=== PATIENT | female | born 1970 | race African-American/Black ===

== ENCOUNTER 2016-12-29 12:12 | Inpatient (IN) | payer MEDICARE ==
[~2016-12-29] VITALS: Ht 157.5 cm; Wt 122.7 kg
[~2016-12-29 12:12] MED LIST: CRESTOR20 MG PO; DIFLUCAN150 MG PO; DULCOLAX10 MG/SUPP RC; KLOR-CON 1010 MEQ PO; LASIX20 MG PO; LOVENOX40 MG/0.4 SQ; MORPHINE SULFAT15 M3 PO; OXYCODONE HCL10 MG PO; OXYCODONE HCL5 MG PO; PROTONIX40 MG PO; SOMA350 MG PO; TAZICEF IV; ZANAFLEX4 MG PO
[2016-12-29 13:13] LABS: HEMATOCRIT 38.9 % (36.0-48.0); HEMOGLOBIN 12.5 g/dL (12-16); MCH 27.1 pg (26.0-34.0); MCHC 32.1 g/dL (31.0-37.0); MCV 84.2 fL (80.0-100.0); MEAN PLATELET VOLUME 10.1 fL (7.4-10.4); PLATELET COUNT 330 10x3/uL (130-400); RBC 4.62 10x6/uL (4.00-5.40); RDW 15.2 % (11.5-14.5); WBC 21.5 10x3/uL (4.8-10.8)
[2016-12-29 13:32] LABS: ALBUMIN 2.8 g/dL (3.4-5.0); ANION GAP 8.3 mmol/L (8-16); BILIRUBIN - TOTAL 0.88 mg/dL (0.2-1.3); CALCIUM 8.9 mg/dL (8.5-10.1); CARBON DIOXIDE 33.4 mmol/L (21.0-32.0); CREATININE - SERUM 1.1 mg/dL (0.6-1.3); POTASSIUM - SERUM 3.7 mmol/L (3.5-5.1)
[2016-12-29 13:56] LABS: LYMPHOCYTES 19 % (15-50); MONOCYTES 19 % (2-11); NEUTROPHILS 59 % (40-80); PLATELET ESTIMATE NORMAL
[2016-12-29 14:44] LABS: AMORPHOUS SEDIMENT <1+ /lpf (NONE SEEN); APPEARANCE HAZY (CLEAR); BACTERIA MANY /hpf (NONE SEEN); BILIRUBIN NEGATIVE (NEGATIVE); COLOR YELLOW (YELLOW); GLUCOSE NEGATIVE (NEGATIVE); HYALINE CAST RARE /lpf (NONE SEEN); KETONE NEGATIVE (NEGATIVE); LEUKOCYTE ESTERASE 2+ (NEGATIVE); MUCUS <1+ /lpf (NONE SEEN); NITRITE NEGATIVE (NEGATIVE); PROTEIN NEGATIVE (NEGATIVE); RED CELLS - URINE 0-5 /hpf (0-5)
--- NOTE | 2016-12-29 20:57 | NUR ---
PATIENT RECEIVED TO ROOM VIA STRETCHER. FAMILY PRESENT. STABLE. ASSISTED TO BED. ADMISSION ORDERED REVIEWED AND INITIATED. NO NEEDS VOICED AT THIS TIME ICA WATER GIVEN. ORIENTED TO ROOM AND USE OF CALL LIGHT. BED LOW.
[2016-12-29] MEDS ORDERED: OXYCODONE HCL10 MG PO (21:03)
[2016-12-29 21:45] VITALS: BP 111/64; Ht 157.5 cm; Wt 122.7 kg
[2016-12-30 04:00] VITALS: BP 97/44
--- NOTE | 2016-12-30 05:48 | NUR ---
PATIENT TEMP 102.9. DR. DANIELLE NOTIFIED AND ORDER RECEIVED FOR TYLENOL. TYLENOL GIVEN.
--- NOTE | 2016-12-30 07:30 | NUR ---
REPORT RECEIVED FROM GEOMAGNETICIAN NURSE. CALL LIGHT IN REACH.
[2016-12-30 08:02] VITALS: BP 98/47
--- NOTE | 2016-12-30 09:00 | NUR ---
ASSESSMENT PER KIRT HILTON.
--- NOTE | 2016-12-30 10:52 | NUR ---
OXY IR PO WITH AM MEDS ADMINISTERED. VISITOR IN ROOM. CALL LIGHT IN REACH.
[2016-12-30 12:28] VITALS: BP 99/59
--- NOTE | 2016-12-30 12:30 | NUR ---
DENIES NEEDS AT THIS TIME. CALL LIGHT IN REACH.
--- NOTE | 2016-12-30 14:40 | NUR ---
FAMILY IN ROOM AT THIS TIME. NO NEEDS VOICED AT THIS TIME. CALL LIGHT IN REACH.
--- NOTE | 2016-12-30 15:40 | NUR ---
NO NEEDS VOICED AT THIS TIME. CALL LIGHT IN REACH.
[2016-12-30 15:59] VITALS: BP 122/63
--- NOTE | 2016-12-30 17:55 | NUR ---
PAIN PILLS PO PER C/O PAIN OF 10.
--- NOTE | 2016-12-30 18:06 | NUR ---
NO CHANGES IN INITIAL ASSESSMENT. CALL LIGHT IN REACH. WILL CONTINUE WITH PLAN OF CARE.
[2016-12-30 19:00] VITALS: BP 105/58
--- NOTE | 2016-12-30 22:08 | NUR ---
PATIENT RESTING IN BED. ALERT AND ORIENTED. C/O PAIN TO BACK. PRN DILAUDID GIVEN ORDERED. NO OTHER NEEDS VOICED AT THIS TIME. BED LOW CALL LIGHT IN REACH
[2016-12-31] VITALS: BP 110/64
[2016-12-31 04:00] VITALS: BP 116/56
--- NOTE | 2016-12-31 07:00 | NUR ---
PT WAS RECEIVED AT THE BEGINNING OF THIS SHIFT IN BED. SHE WAS AWAKE AND ORIENTED X 3. AT BEDSIDE. NO COMPLAINTS OR CONCERNS AT THIS TIME. LEFT HAND IV AT KVO RATE. WILL BE MONITORING HER AND ASSISTING PRN WITH ADL'S.
[2016-12-31 08:17] VITALS: BP 118/72
[2016-12-31 12:03] VITALS: BP 83/43
--- NOTE | 2016-12-31 14:08 | NUR ---
PT ASKED FOR PAIN MEDICATION AROUND 934 AND RECEIVED OXYCODONE 10MG AT THAT TIME. CASTILLO CATHETER REMAINS PATENT AND DRAINING URINE TO GRAVITY. TODAY IS PT'S BIRTHDAY.
--- NOTE | 2016-12-31 14:59 | NUR ---
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 PATIENT STATED SHE LIVES WITH HER FAMILY AND THEY WILL DRIVE HER HOME AT DISCHARGE. PATIENT IS A PARAPLEGIC AND HAS A HOSPITAL BED AND SHOWER CHAIR AT HOME. PATIENT HAS A RAMP TO ENTER THERE HOME AND NO STAIRS INSIDE. PATIENTS PCP IS DR. DANIELLE AND PHARMACY IS [facility]. PATIENT HAS NOT HAD HOME HEALTH AND DOES NOT THINK SHE WILL NEED IT. CM WILL CONTINUE TO FOLLOW PATIENT WITH D/C NEEDS AND PLANS. PCP DR. SHASHI COSTA [facility] DIYA (SPOUSE) [phone] Information Technology Manager: Glenna Morrison Is the patient Alert and Oriented? Yes 0 * How many steps to enter\exit or inside your home? RAMP 0 * PCP DR. ESCALONA 0 * Pharmacy [facility] 0 * Preadmission Environment Home with Family 0 * ADLs Total Dependent 0 * Equipment Hospital Bed Shower Chair 0 * List name and contact numbers for known caregivers / representatives who currently or will assist patient after discharge: DIYA (SPOUSE) [phone] * Community resources currently utilized None 0 * Additional services required to return to the preadmission environment? Yes 0 * Can the patient safely return to the preadmission environment? Yes 0 * Has this patient been hospitalized within the prior 30 days at any hospital? No 0 Grand Total: 0
[2016-12-31 16:06] VITALS: BP 102/52
[2016-12-31 20:00] VITALS: BP 112/44
--- NOTE | 2016-12-31 21:00 | NUR ---
PT TURNS SELF. SKIN WNL. PT C/O OF ABDOMINAL CRAMPING. STATES SHE HAS NOT HAD BOWEL MOVEMENT SINCE WEDNESDAY. BOWEL PROGRAM USUALLY DONE ON ,,. ADMINISTERED DULCOLAX SUPPOSITORY AND LAID EXTRA PADDING ON BED. NO OTHER NEEDS AT THIS TIME. WILL REASSESS AND CONTINUE TO MONITOR.
[2017-01-01] VITALS (7 sets, daily range): BP systolic 102–136; BP diastolic 44–91
--- NOTE | 2017-01-01 04:55 | NUR ---
PT HAD LARGE FORMED STOOL. C/O BACK PAIN 05/02. GAVE DILAUDID 1 MG IM TO LEFT VENTROGLUTEAL. NO OTHER NEEDS. WILL CONTINUE TO MONITOR.
--- NOTE | 2017-01-01 08:10 | NUR ---
ASSESSMENT PER FLOW SHEET.PT WITHOUT DISTRESS.CALL LIGHT IN REACH
[2017-01-01 09:49] LABS: BASOPHILS 0.1 % (0-2); EOSINOPHILS 3.4 % (0-7); HEMATOCRIT 37.2 % (36.0-48.0); HEMOGLOBIN 11.6 g/dL (12-16); MCH 26.4 pg (26.0-34.0); MCHC 31.2 g/dL (31.0-37.0); MCV 84.7 fL (80.0-100.0); MEAN PLATELET VOLUME 9.7 fL (7.4-10.4); MONOCYTES 8.1 % (2-11); NEUTROPHILS 55.4 % (40-80); PLATELET COUNT 335 10x3/uL (130-400); RBC 4.39 10x6/uL (4.00-5.40); RDW 15.2 % (11.5-14.5)
[2017-01-01 10:08] LABS: ALBUMIN 2.5 g/dL (3.4-5.0); ANION GAP 4.4 mmol/L (8-16); BILIRUBIN - TOTAL 0.25 mg/dL (0.2-1.3); CALCIUM 8.9 mg/dL (8.5-10.1); CARBON DIOXIDE 34.9 mmol/L (21.0-32.0); CREATININE - SERUM 1.1 mg/dL (0.6-1.3); POTASSIUM - SERUM 3.3 mmol/L (3.5-5.1); PROTEIN - SERUM 7.6 g/dL (6.4-8.2)
--- NOTE | 2017-01-01 18:51 | NUR ---
REMAINS WITHOUT NEEDS,WITHOUT CHANGE.CONT PLAN OF CARE
[2017-01-02 03:55] VITALS: BP 121/86
--- NOTE | 2017-01-02 04:02 | NUR ---
PT IS ASLEEP WITH EASY RESPIRATIONS AND NO DISTRESS NOTED. CASTILLO IS IN PLACE AND DRAINING. THE BED IS LOW, RAILS UP X'S 2 WITH THE CALL LIGHT AT HAND.
[2017-01-02] MEDS ORDERED: MACROBID100 MG PO (06:51)
--- NOTE | 2017-01-02 07:50 | NUR ---
ASSESSMENT PER FLOW SHEET.PT WITHOUT DISTRESS.DENIES NEEDS.CALL LIGHT IN REACH
[2017-01-02 07:57] VITALS: BP 119/61
--- NOTE | 2017-01-02 10:30 | NUR ---
IV DCD WITH CATH INTACT.DISCHARGE INSTRUCTIONS.STATES UNDERSTANDING.
--- NOTE | 2017-01-02 11:00 | NUR ---
LEFT UNIT VIA WHEELCHAIR FOR TRANSPORT HOME
--- NOTE | 2017-01-02 11:03 | NUR ---
HH order received, spoke to court who stated she does not have a preference of agency. Referral called and faxed to [facility]. They will make first visit on Wednesday. ALINA for signed for [facility]. Stefania Rios RN, CCM
== END 2017-01-02 11:00 | disposition home health service (06) | DRG 699 ==
LOC: D.ER 12:12 → D.MS 17:42
PROVIDERS: Emergency Medicine; ADMIT Legal Medicine
DX: T83.518A Infection and inflammatory reaction due to other urinary catheter, initial encounter (principal); N12 Tubulo-interstitial nephritis, not specified as acute or chronic; G82.20 Paraplegia, unspecified; Z68.42 Body mass index [BMI] 45.0-49.9, adult; E66.9 Obesity, unspecified; J44.9 Chronic obstructive pulmonary disease, unspecified; E78.5 Hyperlipidemia, unspecified

== ENCOUNTER 2019-10-04 12:50 | Inpatient (IN) | payer MEDICARE ==
[~2019-10-04] VITALS: Ht 157.5 cm; Wt 122.5 kg
[~2019-10-04 12:50] MED LIST changes: +MACROBID100 MG PO
[2019-10-04 13:11] VITALS: BP 150/85
[2019-10-04 14:39] LABS: HEMOGLOBIN 12.3 g/dL (12-16); MCHC 32.4 g/dL (31.0-37.0); MCV 83.5 fL (80.0-100.0); MEAN PLATELET VOLUME 10.1 fL (7.4-10.4); PLATELET COUNT 400 10x3/uL (130-400); RBC 4.55 10x6/uL (4.00-5.40); RDW 15.1 % (11.5-14.5); WBC 21.6 10x3/uL (4.8-10.8)
[2019-10-04 14:51] LABS: COLOR YELLOW (YELLOW)
[2019-10-04 14:52] LABS: AMORPHOUS SEDIMENT <1+ /lpf (NONE SEEN); APPEARANCE CLOUDY (CLEAR); BACTERIA MODERATE /hpf (NEGATIVE); BILIRUBIN NEGATIVE (NEGATIVE); EPITHELIAL CELLS 0-5 /hpf (0-5); GLUCOSE NEGATIVE (NEGATIVE); KETONE NEGATIVE (NEGATIVE); MUCUS <1+ /lpf (NONE SEEN); NITRITE POSITIVE (NEGATIVE); PROTEIN TRACE mg/dL (NEGATIVE); UROBILINOGEN NORMAL (NORMAL)
[2019-10-04 14:52] LABS: ANION GAP 9.2 mmol/L (8-16); CALCIUM 9.1 mg/dL (8.5-10.1); CARBON DIOXIDE 31.9 mmol/L (21.0-32.0); CREATININE - SERUM 1.3 mg/dL (0.6-1.3); POTASSIUM - SERUM 3.1 mmol/L (3.5-5.1)
[2019-10-04 15:06] LABS: ALBUMIN 2.9 g/dL (3.4-5.0); BILIRUBIN - TOTAL 0.49 mg/dL (0.2-1.3); PROTEIN - SERUM 8.4 g/dL (6.4-8.2)
[2019-10-04 15:31] LABS: LYMPHOCYTES 20 % (15-50); MONOCYTES 6 % (2-11); NEUTROPHILS 74 % (40-80); PLATELET ESTIMATE NORMAL
--- NOTE | 2019-10-04 19:14 | NUR ---
PATIENT ONLY NEEDS 2LTS N/S PER DALTON COMACHO DRAFTER AUTOMOTIVE DESIGN
[2019-10-04 20:00] VITALS: BP 136/47
[2019-10-04 21:16] VITALS: BP 136/76
--- NOTE | 2019-10-04 21:20 | NUR ---
PT GIVEN BLANKET, DENIES ANY FURTHER NEEDS AT THIS TIME. CALL LIGHT WITHIN REACH. WILL CONTINUE TO MONITOR.
[2019-10-04 22:30] VITALS: BP 154/65
--- NOTE | 2019-10-04 22:45 | NUR ---
850 ML OF DARK YELLOW URINE EMPTIED FROM PT'S LEG BAG.
[2019-10-05 09:52] VITALS: BP 141/76; BMI 49.5
--- NOTE | 2019-10-05 13:25 | NUR ---
I have reviewed this patient and I concur with the Shift Assessment completed by the Licensed Practical Nurse today this shift.
--- NOTE | 2019-10-05 13:40 | MORECARE ---
CASE MANAGEMENT DISCHARGE SUMMARY PATIENT: ESTEFANIA GONZALEZ UNIT: [id number] ADM DATE: 10/05/19 AGE: 49 : 74 SEX: F ROOM/BED: D.2210 AUTHOR: SURAJ,DOC PHYSICIAN: REFERRING PHYSICIAN: KUSUM DANIELLE MD DATE OF SERVICE: 10/05/19 Discharge Plan Patient Name: ESTEFANIA GONZALEZ Facility: [facility]:[place] : 1970 Planned Disposition: Anticipated Discharge Date: Discharge Date: Expected LOS: Initial Reviewer: [email or web address] Initial Review Date: 10/05/2019 Generated: 10/05/19 2:39 pm DCP- Discharge Planning Updated by [email or web address]: Mayra Castellanos on 10/05/19 10:[address] CM met with patient to discuss initial discharge planning. Patient is in agreement to proceed with the assessment with spouse present. Patient reports that she lives at home partially dependent with her spouse, 2 sons. Patient is alert/oriented. Stairs/steps: Ramp. PCP: Dr. Danielle. Pharmacy: [facility]. Patient states she has been able to obtain all of her prescribed medications. HHS: No. DME: W/C, C-pap. DME provider [facility]. Patient gives permission to speak with family members/care givers. Emergency contact: Brayan Gonzalez (spouse) [phone]. 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 Community resources: Aide 7/d/w for personal care through [facility], total of 63 hours every 2 weeks. CM discussed the availability of HH, Rehab, DME services. Patient denies the need for additional services at this time and feels safe returning to previous environment. Patient denies being hospitalized within the past 30 days. Transportation at time of discharge: Brayan Gonzalez (spouse) [phone]. CM will assist PRN with dc needs/plans. DCPIA - Discharge Planning Initial Assessment Updated by [email or web address]: Mayra Castellanos on 10/05/19 1:37 pm * Is the patient Alert and Oriented? Yes * How many steps to enter\exit or inside your home? Ramp * PCP Dr. Danielle * Pharmacy [facility] * Preadmission Environment Home with Family * ADLs Partial Dependent * Partial ADLs (Assistance needed) Bathing Dressing * Equipment CPAP Wheelchair * Other Equipment DME: [facility] * List name and contact numbers for known caregivers / representatives who currently or will assist patient after discharge: Brayan Gonzalez [phone] * Verbal permission to speak to the caregivers and representatives has been obtained from the patient. Yes * Community resources currently utilized Private Duty Care * Please name any agencies selected above. Aide through [facility] * Additional services required to return to the preadmission environment? No * Can the patient safely return to the preadmission environment? Yes * Has this patient been hospitalized within the prior 30 days at any hospital? No Patient Name: ESTEFANIA GONZALEZ Page [id number] at 1340 All edits/amendments must be made on the electronic document DICTATION DATE: 10/05/191338 CUPOLA HOIST OPERATOR: TACO 10/05/19 133 RPT#: [id number] [place] DATE: STATUS: ADM IN [facility] [address] [place] [address] END OF REPORT
--- NOTE | 2019-10-05 15:20 | NUR ---
REC'D TO ROOM 2210 AT THIS TIME AWAKE AND ALERT. RESP EVEN AND UNLABORED WITH NO DISTRESS NOTED. CAN EXPRESS NEEDS AND WANTS. NO C/O NOTEDOR VOICED. ASSESMENT COMPLETED. R HAND IV WHICH IS SALINE LOCK. WILL CONTINUE TO OBSERVE FOR NEEDS. C/L IN REACH AT BEDSIDE.
[2019-10-05 16:35] VITALS: BP 109/64
[2019-10-05 20:00] VITALS: BP 116/59
[2019-10-06] VITALS: BP 113/64
[2019-10-06 04:00] VITALS: BP 115/66
[2019-10-06 05:07] LABS: BASOPHILS 0.2 % (0-2); EOSINOPHILS 0.6 % (0-7); HEMATOCRIT 35.5 % (36.0-48.0); HEMOGLOBIN 11.1 g/dL (12-16); IMMATURE GRANULOCYTES 0.5 % (0-5); LYMPHOCYTES 25.3 % (15-50); MCH 26.7 pg (26.0-34.0); MCHC 31.3 g/dL (31.0-37.0); MEAN PLATELET VOLUME 10.2 fL (7.4-10.4); MONOCYTES 15.1 % (2-11); NEUTROPHILS 58.3 % (40-80); PLATELET COUNT 362 10x3/uL (130-400); RBC 4.15 10x6/uL (4.00-5.40); RDW 15.4 % (11.5-14.5)
[2019-10-06 05:15] LABS: CALCIUM 8.6 mg/dL (8.5-10.1); CARBON DIOXIDE 36.2 mmol/L (21.0-32.0); CREATININE - SERUM 1.1 mg/dL (0.6-1.3); POTASSIUM - SERUM 3.2 mmol/L (3.5-5.1)
[2019-10-06 06:09] LABS: MCV 85.5 fL (80.0-100.0); WBC 13.2 10x3/uL (4.8-10.8)
[2019-10-06 09:43] VITALS: BP 108/69
[2019-10-06 12:56] VITALS: BP 118/76
[2019-10-06 14:34] VITALS: Ht 157.5 cm; Wt 122.5 kg
[2019-10-06 17:43] VITALS: BP 118/69
[2019-10-06 20:00] VITALS: BP 110/57
--- NOTE | 2019-10-06 22:00 | NUR ---
GAVE DULCOLAX SUPPOSITORY. PT REFUSES OVERLAY AIRBED. NO OTHER NEEDS. ASSESSMENT COMPLETE PER FLOW-SHEET. WILL CONTINUE TO MONITOR.
[2019-10-07] VITALS: BP 106/44
[2019-10-07 04:00] VITALS: BP 122/55
[2019-10-07 06:29] LABS: BASOPHILS 0.2 % (0-2); EOSINOPHILS 2.3 % (0-7); HEMOGLOBIN 11.3 g/dL (12-16); IMMATURE GRANULOCYTES 0.5 % (0-5); LYMPHOCYTES 32.3 % (15-50); MCH 26.9 pg (26.0-34.0); MCHC 31.4 g/dL (31.0-37.0); MCV 85.7 fL (80.0-100.0); MEAN PLATELET VOLUME 9.9 fL (7.4-10.4); MONOCYTES 11.6 % (2-11); NEUTROPHILS 53.1 % (40-80); PLATELET COUNT 379 10x3/uL (130-400); RDW 15.2 % (11.5-14.5); WBC 10.4 10x3/uL (4.8-10.8)
[2019-10-07 06:39] LABS: ANION GAP 7.5 mmol/L (8-16); CALCIUM 8.5 mg/dL (8.5-10.1); CARBON DIOXIDE 34.9 mmol/L (21.0-32.0); POTASSIUM - SERUM 3.4 mmol/L (3.5-5.1)
[2019-10-07 08:47] VITALS: BP 104/63
[2019-10-07 12:10] VITALS: BP 110/51
[2019-10-07 16:44] VITALS: BP 111/61
[2019-10-07 20:00] VITALS: BP 111/59
--- NOTE | 2019-10-07 20:00 | NUR ---
WOKE PT FOR ASSESSMENT. PT REFUSED ENEMA ADMINISTRATION AT THIS TIME. STATES SHE HAS BEEN "HAVING A LOT OF RUMBLING" AND DOES NOT WANT THE ENEMA YET.
[2019-10-08] VITALS: BP 127/60
[2019-10-08 04:00] VITALS: BP 135/83
[2019-10-08 05:28] LABS: BASOPHILS 0.2 % (0-2); EOSINOPHILS 2.9 % (0-7); HEMATOCRIT 35.5 % (36.0-48.0); HEMOGLOBIN 11.2 g/dL (12-16); IMMATURE GRANULOCYTES 0.7 % (0-5); MCH 26.9 pg (26.0-34.0); MCHC 31.5 g/dL (31.0-37.0); MCV 85.3 fL (80.0-100.0); MEAN PLATELET VOLUME 10.2 fL (7.4-10.4); MONOCYTES 11.9 % (2-11); NEUTROPHILS 48.3 % (40-80); PLATELET COUNT 418 10x3/uL (130-400); RBC 4.16 10x6/uL (4.00-5.40); RDW 15.3 % (11.5-14.5); WBC 8.8 10x3/uL (4.8-10.8)
[2019-10-08 05:46] LABS: ANION GAP 7.8 mmol/L (8-16); CALCIUM 9.2 mg/dL (8.5-10.1); CARBON DIOXIDE 32.8 mmol/L (21.0-32.0); POTASSIUM - SERUM 3.6 mmol/L (3.5-5.1)
[2019-10-08 08:12] VITALS: BP 113/71
--- NOTE | 2019-10-08 09:38 | NUR ---
HAS HAD SOME BM'S, PO MED GIVEN FOR A BM THIS MORNING. HELPED TURNED TO THE LEFT SIDE. NO NEW ISSUES. CASTILLO DRAINING YELLOW URINE.
[2019-10-08 12:02] VITALS: BP 110/62
[2019-10-08 16:19] VITALS: BP 121/52
[2019-10-08 20:00] VITALS: BP 103/60
[2019-10-09] VITALS: BP 110/54
[2019-10-09 04:00] VITALS: BP 120/59
[2019-10-09 04:17] LABS: BASOPHILS 0.2 % (0-2); EOSINOPHILS 2.8 % (0-7); HEMATOCRIT 35.6 % (36.0-48.0); HEMOGLOBIN 11.3 g/dL (12-16); IMMATURE GRANULOCYTES 0.8 % (0-5); MCH 26.8 pg (26.0-34.0); MCHC 31.7 g/dL (31.0-37.0); MCV 84.4 fL (80.0-100.0); MEAN PLATELET VOLUME 9.4 fL (7.4-10.4); MONOCYTES 7.7 % (2-11); NEUTROPHILS 54.5 % (40-80); PLATELET COUNT 416 10x3/uL (130-400); RBC 4.22 10x6/uL (4.00-5.40); RDW 15.1 % (11.5-14.5); WBC 8.9 10x3/uL (4.8-10.8)
[2019-10-09 04:36] LABS: CALCIUM 8.9 mg/dL (8.5-10.1); CARBON DIOXIDE 32.5 mmol/L (21.0-32.0); POTASSIUM - SERUM 3.5 mmol/L (3.5-5.1)
--- NOTE | 2019-10-09 07:20 | NUR ---
REC'D IN BED WITH EYES CLOSED EASILY TO AROUSED WHEN NAME IS CALLED. RESP EVEN AND UNLABORED WITH NO DISTRESS NOTED. CAN EXPRESS NEEDS AND WANTS. NO C/O NOTED OR VOICED. ASSESSMENT COMPLETED. C/L IN REACH AT BEDSIDE.
[2019-10-09 08:23] VITALS: BP 101/54
--- NOTE | 2019-10-09 09:14 | MORECARE ---
CASE MANAGEMENT DISCHARGE SUMMARY PATIENT: ESTEFANIA GONZALEZ UNIT: [id number] ADM DATE: 10/05/19 AGE: 49 : 74 SEX: F ROOM/BED: D.2210 AUTHOR: SURAJ,DOC PHYSICIAN: REFERRING PHYSICIAN: KUSUM DANIELLE MD DATE OF SERVICE: 10/09/19 Discharge Plan Patient Name: ESTEFANIA GONZALEZ Facility: [facility]:[place] : 1970 Planned Disposition: Anticipated Discharge Date: Discharge Date: Expected LOS: Initial Reviewer: [email or web address] Initial Review Date: 10/05/2019 Generated: 10/09/19 10:13 am DCP- Discharge Planning Updated by [email or web address]: Mayra Castellanos on 10/05/19 10:[address] CM met with patient to discuss initial discharge planning. Patient is in agreement to proceed with the assessment with spouse present. Patient reports that she lives at home partially dependent with her spouse, 2 sons. Patient is alert/oriented. Stairs/steps: Ramp. PCP: Dr. Danielle. Pharmacy: [facility]. Patient states she has been able to obtain all of her prescribed medications. HHS: No. DME: W/C, C-pap. DME provider [facility]. Patient gives permission to speak with family members/care givers. Emergency contact: Brayan Gonzalez (spouse) [phone]. 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 Community resources: Aide 7/d/w for personal care through [facility], total of 63 hours every 2 weeks. CM discussed the availability of HH, Rehab, DME services. Patient denies the need for additional services at this time and feels safe returning to previous environment. Patient denies being hospitalized within the past 30 days. Transportation at time of discharge: Brayan Gonzalez (spouse) [phone]. CM will assist PRN with dc needs/plans. DCPIA - Discharge Planning Initial Assessment Updated by [email or web address]: Mayra Castellanos on 10/05/19 1:37 pm * Is the patient Alert and Oriented? Yes * How many steps to enter\exit or inside your home? Ramp * PCP Dr. Danielle * Pharmacy [facility] * Preadmission Environment Home with Family * ADLs Partial Dependent * Partial ADLs (Assistance needed) Bathing Dressing * Equipment CPAP Wheelchair * Other Equipment DME: [facility] * List name and contact numbers for known caregivers / representatives who currently or will assist patient after discharge: Brayan Gonzalez [phone] * Verbal permission to speak to the caregivers and representatives has been obtained from the patient. Yes * Community resources currently utilized Private Duty Care * Please name any agencies selected above. Aide through [facility] * Additional services required to return to the preadmission environment? No * Can the patient safely return to the preadmission environment? Yes * Has this patient been hospitalized within the prior 30 days at any hospital? No Last DP export: 10/05/19 12:40 p Patient Name: ESTEFANIA GONZALEZ Page [phone] at 0914 All edits/amendments must be made on the electronic document DICTATION DATE: 10/09/19912 SENIOR ECONOMIST: TACO 10/09/19912 RPT#: [id number] DC DATE: STATUS: ADM IN [facility] [address] [place] [address] END OF REPORT
[2019-10-09 12:18] VITALS: BP 119/58
--- NOTE | 2019-10-09 13:07 | NUR ---
WAS MEDICATED WITH OXY IR PER ORDER FOR C/O PAIN. C/L IN REACH AT BEDSIDE.
[2019-10-09 16:43] VITALS: BP 108/56
--- NOTE | 2019-10-09 18:45 | NUR ---
I have reviewed this patient and I concur with the Shift Assessment completed by the Licensed Practical Nurse today this shift.
--- NOTE | 2019-10-09 19:24 | NUR ---
PT IS RESTING IN BED WITH EYES OPEN. RESPIRATIONS ARE EVEN ADN UNLABORED. PT IS AAO X 4. PT DENIES PRESENCE OF N/V/PAIN. PT REPORTS THAT SHE HAS NO FEELING TO BLE AND HAS FULL ROM TO BUE. PT REPOSITIONED TO RIGHT SIDE. PILLOWS USED FOR SUPPORT. PT ENCOURAGED TO TCDB. PT VERBALIZES UNDERSTANDING. BED IS IN THE LOWEST POSITION. CALL LIGHT AND BEDSIDE TABLE ARE WITHIN REACH. SIDE RAILS X 2. PT DENIES FURTHER NEEDS. WILL CONT TO MONITOR.
[2019-10-09 21:39] VITALS: BP 107/65
--- NOTE | 2019-10-09 21:42 | NUR ---
PT REPOSITIONED TO BACK. BED IS IN THE LOWEST POSITION. CALL LIGHT AND BEDSIDE TABLE ARE WITHIN REACH. SIDE RAILS X 2. PT DENIES FURTHER NEEDS. WILL CONT TO MONITOR.
--- NOTE | 2019-10-10 00:30 | NUR ---
PT STATES PAIN IN BACK 06/01, GAVE OXY ORDERED. DENIES OTHER NEEDS. CL IN REACH, WILL CTM
[2019-10-10 01:26] VITALS: BP 127/70
[2019-10-10 05:30] VITALS: BP 120/68
[2019-10-10 05:30] LABS: BASOPHILS 0.2 % (0-2); EOSINOPHILS 2.4 % (0-7); HEMOGLOBIN 11.4 g/dL (12-16); IMMATURE GRANULOCYTES 0.7 % (0-5); LYMPHOCYTES 30.7 % (15-50); MCH 26.5 pg (26.0-34.0); MCHC 31.7 g/dL (31.0-37.0); MCV 83.5 fL (80.0-100.0); MEAN PLATELET VOLUME 9.9 fL (7.4-10.4); MONOCYTES 6.9 % (2-11); NEUTROPHILS 59.1 % (40-80); PLATELET COUNT 483 10x3/uL (130-400); RBC 4.31 10x6/uL (4.00-5.40)
[2019-10-10 05:44] LABS: ANION GAP 10.6 mmol/L (8-16); CARBON DIOXIDE 30.9 mmol/L (21.0-32.0); CREATININE - SERUM 0.9 mg/dL (0.6-1.3); POTASSIUM - SERUM 3.5 mmol/L (3.5-5.1)
[2019-10-10 05:56] LABS: WBC 11.9 10x3/uL (4.8-10.8)
--- NOTE | 2019-10-10 09:00 | NUR ---
BATH AND LINEN CHANGED AT THIS TIME VIA THIS NURSE. C/L IN REACH AT BEDSIDE.
[2019-10-10 09:28] VITALS: BP 108/73
--- NOTE | 2019-10-10 12:13 | NUR ---
MEDICATED WITH OXY PER ORDERS AT THIS TIME FOR C/O PAIN RATING 9/10. C/L IN REACH AT BEDSIDE
[2019-10-10 12:45] VITALS: BP 122/84
--- NOTE | 2019-10-10 14:20 | NUR ---
Nutrition follow-up: Diet: Regular PO intake continues to be fair to good at meals Labs reviewed Wt: 270# +BM RDN following.
--- NOTE | 2019-10-10 14:30 | NUR ---
I have reviewed this patient and I concur with the Shift Assessment completed by the Licensed Practical Nurse today this shift.
--- NOTE | 2019-10-10 17:09 | NUR ---
C/O GENERALIZED PAIN WAS MEDICATED WITH OXY PER ORDERS. C/L IN REACH AT BEDSIDE.
[2019-10-10 17:17] VITALS: BP 148/79
--- NOTE | 2019-10-10 19:30 | NUR ---
PT SITTING UP IN BED WITHOUT DISTRESS, AOX4. IV RIGHT HAND SL. NO REDNESS OR SWELLING AT SITE. CASTILLO DRAINING CLEAR YELLOW URINE. HEEL PROTECTORS IN PLACE BILAT. TURNED TO LEFT SIDE. DENIES OTHER NEEDS. CL IN REACH, WILL CTM
--- NOTE | 2019-10-10 21:30 | NUR ---
HS MEDS GIVEN WITHOUT DIFFICULTY. PROVIDED ICE WATER. TURNED TO RIGHT SIDE. DENIES FURTHER NEEDS. WILL CTM
[2019-10-10 23:09] VITALS: BP 119/49
[2019-10-11 01:45] VITALS: BP 112/67
[2019-10-11 05:20] VITALS: BP 97/67
[2019-10-11 05:25] LABS: BASOPHILS 0.2 % (0-2); EOSINOPHILS 3.2 % (0-7); HEMATOCRIT 36.9 % (36.0-48.0); HEMOGLOBIN 11.7 g/dL (12-16); IMMATURE GRANULOCYTES 0.9 % (0-5); LYMPHOCYTES 32.1 % (15-50); MCH 26.8 pg (26.0-34.0); MCHC 31.7 g/dL (31.0-37.0); MCV 84.4 fL (80.0-100.0); MEAN PLATELET VOLUME 9.5 fL (7.4-10.4); MONOCYTES 7.7 % (2-11); NEUTROPHILS 55.9 % (40-80); PLATELET COUNT 525 10x3/uL (130-400); RBC 4.37 10x6/uL (4.00-5.40); RDW 15.1 % (11.5-14.5); WBC 9.7 10x3/uL (4.8-10.8)
[2019-10-11 05:34] LABS: ANION GAP 9.1 mmol/L (8-16); CALCIUM 8.9 mg/dL (8.5-10.1); CARBON DIOXIDE 34.5 mmol/L (21.0-32.0); CREATININE - SERUM 0.9 mg/dL (0.6-1.3); POTASSIUM - SERUM 3.6 mmol/L (3.5-5.1)
--- NOTE | 2019-10-11 05:45 | NUR ---
STATES PAIN 06/01, GAVE OXY ORDERED. TURNED TO BACK. DENIES OTHER NEEDS. WILL CTM
[2019-10-11 09:04] VITALS: BP 113/69
[2019-10-11 13:41] VITALS: BP 110/65
[2019-10-11 17:51] VITALS: BP 113/64
[2019-10-11 20:00] VITALS: BP 118/66
--- NOTE | 2019-10-11 21:00 | NUR ---
OXY GIVEN FOR PAIN 10/10 IN BACK
--- NOTE | 2019-10-12 03:00 | NUR ---
PT STATES PAIN IN BACK 10/10 IN BACK. GAVE OXY ORDERED. DENIES OTHER NEEDS. CL IN REACH, WILL CTM
[2019-10-12 04:00] VITALS: BP 101/61
[2019-10-12 08:03] LABS: BASOPHILS 0.1 % (0-2); EOSINOPHILS 2.7 % (0-7); HEMOGLOBIN 11.7 g/dL (12-16); IMMATURE GRANULOCYTES 0.7 % (0-5); MCH 26.6 pg (26.0-34.0); MCHC 31.6 g/dL (31.0-37.0); MCV 84.1 fL (80.0-100.0); MEAN PLATELET VOLUME 9.6 fL (7.4-10.4); NEUTROPHILS 52.5 % (40-80); PLATELET COUNT 526 10x3/uL (130-400); RDW 15.1 % (11.5-14.5)
[2019-10-12 08:13] LABS: CALC OSMOLALITY 279 mosm/kg (275-300); CALCIUM 8.3 mg/dL (8.5-10.1); CARBON DIOXIDE 33.4 mmol/L (21.0-32.0); CHLORIDE - SERUM 104 mmol/L (98-107); CREATININE - SERUM 0.8 mg/dL (0.6-1.3); GLUCOSE 100 mg/dL (74-106); POTASSIUM - SERUM 3.8 mmol/L (3.5-5.1); SODIUM 141 mmol/L (136-145); UREA NITROGEN 10 mg/dL (7-18); eGFR NON AFRICAN AMERICAN 81 mL/min (90-120)
[2019-10-12 08:47] VITALS: BP 113/65
[2019-10-12 11:47] VITALS: BP 112/60
--- NOTE | 2019-10-12 15:00 | NUR ---
PATIENT IV RED AND BURNING. REMOVED WITH CATH TIP INTACT. DOESNT WANT IT RESTARTED BC SHE WANTS TO SEE IF SHE CAN LEAVE IT OUT SINCE SHE IS BEING DC'D TOMORROW. CALL LIGHT WITHIN REACH.
--- NOTE | 2019-10-12 18:26 | NUR ---
RON RUCKER STATED OK TO GIVE PATIENT PO LEVAQUIN BECAUSE IV IS OUT AND PATIENT DOESNT WANT A NEW ONE BC SHE IS SUPPOSE TO DC TOMORROW.
[2019-10-12 20:00] VITALS: BP 129/61
--- NOTE | 2019-10-12 20:30 | NUR ---
PT LYING IN BED RESTING WITHOUT DISTRESS, AOX4. NO IV ACCESS AT THIS TIME. HS MEDS GIVEN. OXY GIVEN FOR PAIN 8/10 IN BACK. PROVIDED WATER. DENIES OTHER NEEDS. CL IN REACH, WILL CTM
--- NOTE | 2019-10-13 03:00 | NUR ---
PT STATES PAIN 8/10 IN BACK, GAVE OXY ORDERED. DENIES OTHER NEEDS. WILL CTM
[2019-10-13 04:00] VITALS: BP 115/66
[2019-10-13 05:16] LABS: ANION GAP 8.5 mmol/L (8-16); CALCIUM 8.8 mg/dL (8.5-10.1); CARBON DIOXIDE 34.8 mmol/L (21.0-32.0); POTASSIUM - SERUM 4.3 mmol/L (3.5-5.1)
[2019-10-13 05:37] LABS: HEMATOCRIT 35.6 % (36.0-48.0); HEMOGLOBIN 11.3 g/dL (12-16); MCH 26.6 pg (26.0-34.0); MCHC 31.7 g/dL (31.0-37.0); MCV 83.8 fL (80.0-100.0); MEAN PLATELET VOLUME 10.2 fL (7.4-10.4); PLATELET COUNT 457 10x3/uL (130-400); RBC 4.25 10x6/uL (4.00-5.40); RDW 15.3 % (11.5-14.5); WBC 8.8 10x3/uL (4.8-10.8)
--- NOTE | 2019-10-13 08:00 | NUR ---
PATIENT IN BED WITH NO COMPLAINTS OR SIGNS OF DISTRESS. CALL LIGHT WITHIN REACH.
[2019-10-13 08:09] LABS: EOSINOPHILS 5 % (0-7); LYMPHOCYTES 39 % (15-50); MONOCYTES 10 % (2-11); NEUTROPHILS 46 % (40-80); PLATELET ESTIMATE NORMAL
[2019-10-13] MEDS ORDERED: LEVOFLOXACIN500 MG PO (09:41)
[2019-10-13 09:48] VITALS: BP 105/66
--- NOTE | 2019-10-13 11:49 | MORECARE ---
CASE MANAGEMENT DISCHARGE SUMMARY PATIENT: ESTEFANIA GONZALEZ UNIT: [id number] ADM DATE: 10/05/19 AGE: 49 : 74 SEX: F ROOM/BED: D.2210 AUTHOR: SURAJ,DOC PHYSICIAN: REFERRING PHYSICIAN: KUSUM DANIELLE MD DATE OF SERVICE: 10/13/19 Discharge Plan Patient Name: ESTEFANIA GONZALEZ Facility: [facility]:[place] : 1970 Planned Disposition: Anticipated Discharge Date: Discharge Date: Expected LOS: Initial Reviewer: [email or web address] Initial Review Date: 10/05/2019 Generated: 10/13/19 12:49 pm Comments DCP- Discharge Planning Updated by [email or web address]: Melvi Pisano on 10/13/19 10:[address] PATIENT DISCHARGING HOME TODAY, IMM SERVED AND EXPLAINED PATIENT DENIES ANY NEW NEEDS. CM TO FOLLOW AND ASSIST NEEDED DCP- Discharge Planning Updated by [email or web address]: Mayra Castellanos on 10/05/19 10:[address] CM met with patient to discuss initial discharge planning. Patient is in agreement to proceed with the assessment with spouse present. Patient reports that she lives at home partially dependent with her spouse, 2 sons. Patient is alert/oriented. Stairs/steps: Ramp. PCP: Dr. Danielle. Pharmacy: [facility]. Patient states she has been able to obtain all of her prescribed medications. HHS: No. DME: W/C, C-pap. DME provider [facility]. Patient gives permission to speak with family members/care givers. Emergency contact: Brayan Gonzalez (spouse) [phone]. 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 Community resources: Aide 7/d/w for personal care through [facility], total of 63 hours every 2 weeks. CM discussed the availability of HH, Rehab, DME services. Patient denies the need for additional services at this time and feels safe returning to previous environment. Patient denies being hospitalized within the past 30 days. Transportation at time of discharge: Brayan Gonzalez (spouse) [phone]. CM will assist PRN with dc needs/plans. DCPIA - Discharge Planning Initial Assessment Updated by [email or web address]: Mayra Castellanos on 10/05/19 1:37 pm * Is the patient Alert and Oriented? Yes * How many steps to enter\exit or inside your home? Ramp * PCP Dr. Danielle * Pharmacy [facility] * Preadmission Environment Home with Family * ADLs Partial Dependent * Partial ADLs (Assistance needed) Bathing Dressing * Equipment CPAP Wheelchair * Other Equipment DME: [facility] * List name and contact numbers for known caregivers / representatives who currently or will assist patient after discharge: Brayan Gonzalez [phone] * Verbal permission to speak to the caregivers and representatives has been obtained from the patient. Yes * Community resources currently utilized Private Duty Care * Please name any agencies selected above. Aide through [facility] * Additional services required to return to the preadmission environment? No * Can the patient safely return to the preadmission environment? Yes * Has this patient been hospitalized within the prior 30 days at any hospital? No Coverage Notice Reviewer: [email or web address] Gene Pisano Notice Issued Date-Time: 10/13/2019 11:30 Notice Type: IM Discharge Notice Notice Delivered To: Patient Relationship to Patient: Snuff Blender Name: Delivery Method: HAND - Hand Delivered Marsha Days: Prior Verbal Notification: Recipient Understood Notice: Yes Recipient Signature: Yes Med Rec Note Co-signed by Attending: Coverage Notice Comment: Last DP export: 10/09/19 8:14 a Patient Name: ESTEFANIA GONZALEZ Page [id number] at 1149 All edits/amendments must be made on the electronic document DICTATION DATE: 10/13/19 1149 RADIOGRAPHIC TECHNOLOGIST: TACO 10/13/19 1149 RPT#: [id number] DC DATE: STATUS: ADM IN [facility] [address] [place] [address] END OF REPORT
[2019-10-13 13:40] VITALS: BP 125/63
--- NOTE | 2019-10-13 16:20 | NUR ---
PATIENT RECIEVED DC INSTRUCTIONS. VERBALIZED UNDERSTANDING. NO QUESTIONS AT THIS TIME. FAMILY AT BEDSIDE. CALL LIGHT WITHIN REACH. ASSISTED DOWN STAIRS VIA WC BY PROFESSIONAL ORGANIZER, WITH PERSONAL BELONGINGS.
--- NOTE | 2019-10-14 09:13 | MORECARE ---
CASE MANAGEMENT DISCHARGE SUMMARY PATIENT: ESTEFANIA GONZALEZ UNIT: [id number] ADM DATE: 10/05/19 AGE: 49 : 74 SEX: F ROOM/BED: D.2210 AUTHOR: SURAJ,DOC PHYSICIAN: REFERRING PHYSICIAN: KUSUM DANIELLE MD DATE OF SERVICE: 10/14/19 Discharge Plan Patient Name: ESTEFANIA GONZALEZ Facility: [facility]:[place] : 1970 Planned Disposition: Anticipated Discharge Date: Discharge Date: 10/13/2019 Expected LOS: Initial Reviewer: [email or web address] Initial Review Date: 10/05/2019 Generated: 10/14/19 10:13 am Comments DCP- Discharge Planning Updated by [email or web address]: Melvi Pisano on 10/13/19 10:[address] PATIENT DISCHARGING HOME TODAY, IMM SERVED AND EXPLAINED PATIENT DENIES ANY NEW NEEDS. CM TO FOLLOW AND ASSIST NEEDED DCP- Discharge Planning Updated by [email or web address]: Mayra Castellanos on 10/05/19 10:[address] CM met with patient to discuss initial discharge planning. Patient is in agreement to proceed with the assessment with spouse present. Patient reports that she lives at home partially dependent with her spouse, 2 sons. Patient is alert/oriented. Stairs/steps: Ramp. PCP: Dr. Danielle. Pharmacy: [facility]. Patient states she has been able to obtain all of her prescribed medications. HHS: No. DME: W/C, C-pap. DME provider [facility]. Patient gives permission to speak with family members/care givers. Emergency contact: Brayan Gonzalez (spouse) [phone]. Patient is partially dependent with all ADL's, medication management [employer] PLE[employer]. Community resources: Aide 7/d/w for personal care through [facility], total of 63 hours every 2 weeks. CM discussed the availability of HH, Rehab, DME services. Patient denies the need for additional services at this time and feels safe returning to previous environment. Patient denies being hospitalized within the past 30 days. Transportation at time of discharge: Brayan Gonzalez (spouse) [phone]. CM will assist PRN with dc needs/plans. DCPIA - Discharge Planning Initial Assessment Updated by [email or web address]: Mayra Espositooy on 10/05/19 1:37 pm * Is the patient Alert and Oriented? Yes * How many steps to enter\exit or inside your home? Ramp * PCP Dr. Danielle * Pharmacy [facility] * Preadmission Environment Home with Family * ADLs Partial Dependent * Partial ADLs (Assistance needed) Bathing Dressing * Equipment CPAP Wheelchair * Other Equipment DME: [facility] * List name and contact numbers for known caregivers / representatives who currently or will assist patient after discharge: Brayan Gonzalez [phone] * Verbal permission to speak to the caregivers and representatives has been obtained from the patient. Yes * Community resources currently utilized Private Duty Care * Please name any agencies selected above. Aide through [facility] * Additional services required to return to the preadmission environment? No * Can the patient safely return to the preadmission environment? Yes * Has this patient been hospitalized within the prior 30 days at any hospital? No Coverage Notice Reviewer: [id number] Gene Pisano Notice Issued Date-Time: 10/13/2019 11:30 Notice Type: IM Discharge Notice Notice Delivered To: Patient Relationship to Patient: Shank Paperer Name: Delivery Method: HAND - Hand Delivered Marsha Days: Prior Verbal Notification: Recipient Understood Notice: Yes Recipient Signature: Yes Med Rec Note Co-signed by Attending: Coverage Notice Comment: Last DP export: 10/13/19 10:50 a Patient Name: ESTEFANIA GONZALEZ Page [id number] at 0913 All edits/amendments must be made on the electronic document DICTATION DATE: 10/14/19912 CARD DECORATOR: TACO 10/14/19912 RPT#: [id number] DC DATE:10/13/19 STATUS: DIS IN [facility] [address] [place] [address] END OF REPORT
== END 2019-10-13 16:30 | disposition home or self-care (01) | DRG 698 ==
LOC: D.ER 12:50 → D.MS 10-05 12:46
PROVIDERS: Emergency Medicine; ADMIT Legal Medicine; ATTEND Legal Medicine
DX: T83.511A Infection and inflammatory reaction due to indwelling urethral catheter, initial encounter (principal); A41.9 Sepsis, unspecified organism; G82.20 Paraplegia, unspecified; N12 Tubulo-interstitial nephritis, not specified as acute or chronic; N39.0 Urinary tract infection, site not specified; E87.6 Hypokalemia